=== PATIENT | female | born 1930 | race Caucasian/White ===

== ENCOUNTER 2017-05-10 08:29 | Inpatient (IN) | payer OTHER ==
[~2017-05-10] VITALS: Ht 162.6 cm; Wt 50.9 kg
[2017-05-10 08:43] LABS: POTASSIUM ISTAT 3.9 mmol/L (3.5-5.0)
--- NOTE | 2017-05-10 08:49 | PHYS DOC ---
Adult General HPI HPI Patient is a 86 year old F who presents with chest pain and shortness of breath. Patient states she woke up this morning after taking her medications developed some chest discomfort and increasing shortness of breath. EMS was called to take the patient to the hospital in the hospital she was being transferred to what is [place] however in route the patient had an EKG that read out as acute STEMI and was diverted to [facility]. Patient is a pacemaker. Patient still complains of some chest discomfort in the emergency room. Patient received aspirin per EMS. Patient denies any fevers. Patient denies any nausea/vomiting/diarrhea. Patient has no other complaints. Review of Systems Review of Systems GEN: Denies fevers, chills, sweats HEENT: Denies blurred vision, sore throat CV: chest pain RESP: Denies shortness of air, cough GI: Denies n/v/d NEURO: Denies confusion, dizziness MSK: Denies weakness, joint pain/swelling Current Medications Current Medications Current Medications Medications (Trade) Dose Ordered Sig/Murphy Start Time Stop Time Status Last Admin Dose Admin Aspirin (Children'S Aspirin) 324 mg 1X ONCE 05/10/17 09:00 05/10/17 09:01 DC 05/10/17 09:01 324 MG Furosemide (Lasix) 40 mg 1X ONCE 05/10/17 09:45 05/10/17 09:46 Iohexol (Omnipaque 300 Mg/ml) 60 ml 1X ONCE 05/10/17 09:45 05/10/17 09:46 Morphine Sulfate 2 mg PRN Q2HR PRN 05/10/17 09:45 05/11/17 09:44 Nitroglycerin (Nitrostat) 0.4 mg PRN Q5MIN PRN 05/10/17 09:45 05/11/17 09:44 Ondansetron HCl (Zofran) 4 mg PRN Q8HRS PRN 05/10/17 09:45 05/11/17 09:44 Allergies Allergies Allergies Coded Allergies Type Severity Reaction Last Updated Verified amoxicillin Allergy Intermediate RASH 05/10/17 Yes meperidine Adverse Reaction Unknown HALLUCINATIONS 05/10/17 Yes Physical Exam Physical Exam GEN.: No apparent distress. Alert and oriented. HEENT: Head is normocephalic, atraumatic NECK: Supple. LUNGS: CTAB. HEART: Irregular irregular, 3/6 MATTHEW. Peripheral pulses intact ABDOMEN: Soft, nontender. Positive bowel sounds. EXTREMITIES: Without any cyanosis. +2 pitting edema to the left lower extremity, no calf tenderness to the left lower extremity NEUROLOGIC: Normal speech, normal tone PSYCHIATRIC: Normal affect, normal mood. SKIN: No ulcerations Current Patient Data Vital Signs Vital Signs Date Time Temp Pulse Resp B/P (MAP) Pulse Ox O2 Delivery O2 Flow Rate FiO2 05/10/17 08:30 98.0 79 16 201/87 (125) 95 Room Air 98.0 Lab Values Laboratory Tests Test 05/10/17 08:30 05/10/17 08:36 05/10/17 08:38 White Blood Count 7.1 x10^3/uL (4.0-11.0) Red Blood Count 5.58 x10^6/uL (3.50-5.40) H Hemoglobin 14.0 g/dL (12.0-15.5) Hematocrit 42.6 % (36.0-47.0) Mean Corpuscular Volume 76 fL (79-100) L Mean Corpuscular Hemoglobin 25 pg (25-35) Mean Corpuscular Hemoglobin Concent 33 g/dL (31-37) Red Cell Distribution Width 21.1 % (11.5-14.5) H Platelet Count 800 x10^3/uL (140-400) H Neutrophils (%) (Auto) 74 % (31-73) H Lymphocytes (%) (Auto) 13 % (24-48) L Monocytes (%) (Auto) 10 % (0-9) H Eosinophils (%) (Auto) 2 % (0-3) Basophils (%) (Auto) 1 % (0-3) Neutrophils # (Auto) 5.3 x10^3uL (1.8-7.7) Lymphocytes # (Auto) 0.9 x10^3/uL (1.0-4.8) L Monocytes # (Auto) 0.7 x10^3/uL (0.0-1.1) Eosinophils # (Auto) 0.2 x10^3/uL (0.0-0.7) Basophils # (Auto) 0.1 x10^3/uL (0.0-0.2) Platelet Estimate Pending Sodium Level 140 mmol/L (136-145) Potassium Level 3.9 mmol/L (3.5-5.1) Chloride Level 99 mmol/L (98-107) Carbon Dioxide Level 31 mmol/L (21-32) Anion Gap 10 (6-14) 17 mmol/L (6-14) H Blood Urea Nitrogen 18 mg/dL (7-20) Creatinine 0.9 mg/dL (0.6-1.0) Estimated GFR (Cockcroft-Gault) 59.2 BUN/Creatinine Ratio 20 (6-20) Glucose Level 90 mg/dL (70-99) 86 mg/dL (70-99) Calcium Level 8.8 mg/dL (8.5-10.1) Total Bilirubin 0.9 mg/dL (0.2-1.0) Aspartate Amino Transferase (AST) 35 U/L (15-37) Alanine Aminotransferase (ALT) 21 U/L (14-59) Alkaline Phosphatase 153 U/L (46-116) H Total Protein 7.3 g/dL (6.4-8.2) Albumin 3.8 g/dL (3.4-5.0) Albumin/Globulin Ratio 1.1 (1.0-1.7) POC Troponin I 0.03 ng/ml (<0.08) POC Hemoglobin 15.3 g/dL (12-15) H POC Hematocrit 45 % (36-40) H POC Sodium 138 mmol/L (135-145) POC Potassium 3.9 mmol/L (3.5-5.0) POC Chloride 97 mmol/L (98-110) L POC Total CO2 29 mmol/L (23-32) POC Blood Urea Nitrogen 19 mg/dL (8-26) POC Creatinine 0.9 mg/dL (0.5-1.4) POC Ionized Calcium (Ángel) 1.15 mmol/L (1.13-1.32) Laboratory Tests 05/10/17 08:30 Laboratory Tests 05/10/17 08:30 05/10/17 08:38 EKG EKG 0831: EKG shows A. fib rate of 78 no STEMI no previous EKG to compare to however no overall change from EMSs EKG 0849: H of fibrillation rate of 97 no change from previous EKGs [] Radiology/Procedures Radiology/Procedures Chest x-ray shows cardiomegaly with pulmonary congestion Ultrasound left lower extremity no acute DVT CT A of the chest pending [] Course & Med Decision Making Course & Med Decision Making Pertinent Labs and Imaging studies reviewed. (See chart for details) ED course: Patient was seen and examined emergency room prior to arrival a STEMI pager was sent out and upon arrival patient to cardiac workup done in the emergency room 0830: Discussed CC/HP/PMH with Dr. Yepez and he in the emergency room in the next 10 minutes. 0846: Dr. Yepez at bedside evaluating the patient and would like to cancel the STEMI page, however like to admit the patient for cardiac workup to medicine with cardiology on consult 0946: Discussed CC/HP/PMH with Dr. LOVE and recommends admit [] MDM: After reviewing the chart, CC/HPI/PMH, physical exam, [lab results], [ radiological results], I do not the patient have an acute STEMI however given the patient's significant cardiac history with the patient for cardiac workup. [] Dragon Disclaimer Dragon Disclaimer This electronic medical record was generated, in whole or in part, using a voice recognition dictation system. Departure Departure Impression: Primary Impression: Chest pain Additional Impressions: Dyspnea Left leg swelling Disposition: ADMITTED INPATIENT Admitting Physician: Theodore Love Condition: STABLE Problem Qualifiers ZENY CAMPOVERDE DO May 10, 2017 08:48
[2017-05-10] MEDS ORDERED: ASPIRIN CHEWABLE 81 MG TABLET. PO ONE (09:00)
--- NOTE | 2017-05-10 09:08 | RAD ---
AP portable chest radiograph 05/10/2017 Clinical History: Chest pain. An AP portable erect digital radiograph of the chest was obtained. No previous studies are available for comparison. A pacemaker overlies the left anterior chest. Leads extends to overlie the right atrium and right ventricle of the heart. The cardiac silhouette is mildly enlarged. Atherosclerotic calcification of the thoracic aorta is seen. The thoracic aorta is tortuous. There appears to be a small left pleural effusion. Fullness of the right superior mediastinum is seen. Prominence of interstitial markings in both lungs is seen suggesting mild interstitial pulmonary edema. No pneumothorax is noted. There is diffuse osteopenia the visualized bony structures. Degenerative changes are seen involving the thoracic spine and both shoulders. Impression: Prominence of the interstitial markings in both lungs is seen consistent with interstitial pulmonary edema related to CHF.
[2017-05-10 09:09] LABS: BASO # 0.1 x10^3/uL (0.0-0.2); BASO % 1 % (0-3); EOS % 2 % (0-3); HEMATOCRIT 42.6 % (36.0-47.0); LYMPH # 0.9 x10^3/uL (1.0-4.8); LYMPH % 13 % (24-48); MEAN CORPUSCULAR HEMOGLOBIN 25 pg (25-35); MEAN CORPUSCULAR HGB CONC 33 g/dL (31-37); MEAN CORPUSCULAR VOLUME 76 fL (79-100); MONO % 10 % (0-9); NEUT % 74 % (31-73); PLATELET COUNT 800 x10^3/uL (140-400); RED BLOOD COUNT 5.58 x10^6/uL (3.50-5.40); RED CELL DISTRIBUTION WIDTH 21.1 % (11.5-14.5); WHITE BLOOD COUNT 7.1 x10^3/uL (4.0-11.0)
[2017-05-10 09:12] LABS: CALCIUM 8.8 mg/dL (8.5-10.1); CREATININE 0.9 mg/dL (0.6-1.0); GFR 59.2; POTASSIUM 3.9 mmol/L (3.5-5.1)
[2017-05-10 09:28] LABS: ALBUMIN 3.8 g/dL (3.4-5.0); ALBUMIN/GLOBULIN RATIO 1.1 (1.0-1.7); TOTAL BILIRUBIN 0.9 mg/dL (0.2-1.0); TOTAL PROTEIN 7.3 g/dL (6.4-8.2)
[2017-05-10] MEDS ORDERED: MORPHINE SULFATE 2 MG/ML DISP.SYRIN. IV PRN (09:45)
[2017-05-10] MEDS ORDERED: NITROGLYCERIN SUBLINGUAL 0.4 MG BOTTLE OF 25. SL PRN (09:45)
[2017-05-10] MEDS ORDERED: IOHEXOL 300 MG/ML 75 ML VIAL IV ONE (09:45)
[2017-05-10] MEDS ORDERED: ONDANSETRON PF 4 MG/2 ML VIAL. IV PRN (09:45)
[2017-05-10] MEDS ORDERED: FUROSEMIDE 40 MG TABLET. PO ONE (09:45)
--- NOTE | 2017-05-10 09:47 | RAD ---
Left lower extremity venous duplex study 05/10/2017 Clinical History: Left leg swelling. Technique: Using a combination of real time ultrasound imaging and color-flow and pulse Doppler imaging techniques along with graded compression and augmentation, duplex evaluation of the deep venous system of the left lower extremity was performed. Multiple images were obtained. Findings: There is no sonographic evidence of deep venous thrombosis involving the visualized deep venous structures of the left lower extremity. Impression: Negative study.
[2017-05-10 10:15] LABS: PLT ESTIMATE INCREASED (ADEQUATE)
[2017-05-10 10:16] LABS: ANISOCYTOSIS MOD
--- NOTE | 2017-05-10 10:29 | RAD ---
CTA of the chest with contrast (pulmonary embolism protocol) 05/10/2017 Clinical History: Chest pain and shortness of breath.. Technique: After the intravenous administration of 60 mL of Omnipaque 300, contiguous, 0.625 mm axial sections were obtained through the chest. 2 mm reconstructed axial and 3D MIP coronal and sagittal reconstructed images were obtained. One or more of the following individualized dose reduction techniques were utilized for this study: 1. Automated exposure control. 2. Adjustment of the mA and/or kV according to patient size. 3. Use of iterative reconstruction technique. Findings: Comparison is made to patient's portable chest radiograph dated earlier today. No filling defects are seen within the major branches of either pulmonary artery. There is no CT evidence of pulmonary embolism. A pacemaker is unchanged in position. Atherosclerotic calcification of the thoracic aorta and its branches is noted. The thoracic aorta is tortuous but tapers normally. There is mild to moderate cardiomegaly. Elevation of the left hemidiaphragm is noted. Small bilateral pleural effusions are seen, right greater than left. Dependent subsegmental atelectasis is seen involving both lower lobes, left greater than right. A 8 mm calcified granuloma is seen involving the right lower lobe. No pneumothorax is noted. Impression: There is no CT evidence of pulmonary embolism.
--- NOTE | 2017-05-10 10:35 | PDOC2 ---
CARDIAC CONSULT DATE OF CONSULT Date of Consult DATE: 05/10/17 TIME: 10:15 REASON FOR CONSULT Reason for Consult: Chest pain REFERRING PHYSICIAN Referring Physician: Fred SOURCE Source: Chart review, Patient HISTORY OF PRESENT ILLNESS HISTORY OF PRESENT ILLNESS This is a pleasant 86 yo female admitted for complains of SOA. Pt reports that she has been having SOA but not too much in the last 2 weeks. This became more pronounced in the last few days and also has been having some slight chest discomfort. She is also been having intermittent palpitations. Last Monday she did fall and had some contusion to her left parietal region of her head but no unconsciousness, confusion. Verbalized that she lost her footing. She has been having some issues with fall thus she is only on ASA for stroke prevention per her manager [facility] at [facility], Dr. Delgado. She has AFIB and she also has pacemaker, likely from [facility]. Positive for orthopnea. She was noted to be SOA at the assisted living and was recommended to go to ED. She was being brought to [facility] but because her EKG appears to have ST elevation she was then diverted to [facility]. After checking she is on paced rhythm with underlying AFIB. Verbalized compliance with her medications. Denies any CAD, CVA but significant for MR. Presently she feels a little better with her SOA. She also has tenderness and LLE swelling but no prior hx of PE or DVT. Denies any fever or chills or increased wheezing in regards to her asthma. PAST MEDICAL HISTORY Cardiovascular: AFIB, HTN Pulmonary: Asthma CENTRAL NERVOUS SYSTEM: Other (No pertinent history) Heme/Onc: No pertinent hx Hepatobiliary: No pertinent hx Psych: No pertinent hx Musculoskeletal: Osteoarthritis Rheumatologic: No pertinent hx Infectious disease: No pertinent hx ENT: No pertinent hx Renal/: Chronic renal insuff Endocrine: No pertinent hx Dermatology: Other (skin cancer with resection) PAST SURGICAL HISTORY Past Surgical History: Pacemaker, Hernia Repair (multiple) FAMILY HISTORY Family History noncontributory to age SOCIAL HISTORY Smoke: No ALCOHOL: none Drugs: None Lives: Alone (assisted living) CURRENT MEDICATIONS CURRENT MEDICATIONS Current Medications Medications (Trade) Dose Ordered Sig/Murphy Route PRN Reason Start Time Stop Time Status Last Admin Dose Admin Aspirin (Children'S Aspirin) 324 mg 1X ONCE PO 05/10/17 09:00 05/10/17 09:01 DC 05/10/17 09:01 Iohexol (Omnipaque 300 Mg/ml) 60 ml 1X ONCE IV 05/10/17 09:45 05/10/17 09:46 DC 05/10/17 10:09 ALLERGIES ALLERGIES: Coded Allergies: amoxicillin (Verified Allergy, Intermediate, RASH, 05/10/17) meperidine (Verified Adverse Reaction, Unknown, HALLUCINATIONS, 05/10/17) ROS Review of System 14 point ROS evaluated with pertinent positives noted per HPI PHYSICAL EXAM General: Alert, Oriented X3, Cooperative, No acute distress HEENT: Atraumatic, Mucous membr. moist/pink Lungs: Other (basilar crackles) Heart: Normal S1, Normal S2, Other (intermittent V pacing with underlying AFIB ; 4/6 systolic murmur loudest to LLS border) Abdomen: Soft, No tenderness Extremities: No cyanosis, Other (2+ LLE edema) Skin: No breakdown, No significant lesion Neuro: Normal speech, Sensation intact Psych/Mental Status: Mental status NL, Mood NL MUSCULOSKELETAL: Osteoarthritic changes both hands VITALS VITALS Vital Signs Date Time Temp Pulse Resp B/P (MAP) Pulse Ox O2 Delivery O2 Flow Rate FiO2 05/10/17 09:30 66 151/77 (101) 94 Room Air 05/10/17 08:30 98.0 16 98.0 LABS Lab: Laboratory Tests Test 05/10/17 08:30 05/10/17 08:36 05/10/17 08:38 White Blood Count 7.1 x10^3/uL (4.0-11.0) Red Blood Count 5.58 x10^6/uL (3.50-5.40) Hemoglobin 14.0 g/dL (12.0-15.5) Hematocrit 42.6 % (36.0-47.0) Mean Corpuscular Volume 76 fL (79-100) Mean Corpuscular Hemoglobin 25 pg (25-35) Mean Corpuscular Hemoglobin Concent 33 g/dL (31-37) Red Cell Distribution Width 21.1 % (11.5-14.5) Platelet Count 800 x10^3/uL (140-400) Neutrophils (%) (Auto) 74 % (31-73) Lymphocytes (%) (Auto) 13 % (24-48) Monocytes (%) (Auto) 10 % (0-9) Eosinophils (%) (Auto) 2 % (0-3) Basophils (%) (Auto) 1 % (0-3) Neutrophils # (Auto) 5.3 x10^3uL (1.8-7.7) Lymphocytes # (Auto) 0.9 x10^3/uL (1.0-4.8) Monocytes # (Auto) 0.7 x10^3/uL (0.0-1.1) Eosinophils # (Auto) 0.2 x10^3/uL (0.0-0.7) Basophils # (Auto) 0.1 x10^3/uL (0.0-0.2) Sodium Level 140 mmol/L (136-145) Potassium Level 3.9 mmol/L (3.5-5.1) Chloride Level 99 mmol/L (98-107) Carbon Dioxide Level 31 mmol/L (21-32) Anion Gap 10 (6-14) 17 mmol/L (6-14) Blood Urea Nitrogen 18 mg/dL (7-20) Creatinine 0.9 mg/dL (0.6-1.0) Estimated GFR (Cockcroft-Gault) 59.2 BUN/Creatinine Ratio 20 (6-20) Glucose Level 90 mg/dL (70-99) 86 mg/dL (70-99) Calcium Level 8.8 mg/dL (8.5-10.1) Total Bilirubin 0.9 mg/dL (0.2-1.0) Aspartate Amino Transf (AST/SGOT) 35 U/L (15-37) Alanine Aminotransferase (ALT/SGPT) 21 U/L (14-59) Alkaline Phosphatase 153 U/L (46-116) Total Protein 7.3 g/dL (6.4-8.2) Albumin 3.8 g/dL (3.4-5.0) Albumin/Globulin Ratio 1.1 (1.0-1.7) Bedside Troponin I 0.03 ng/ml (<0.08) Bedside Hemoglobin 15.3 g/dL (12-15) Bedside Hematocrit 45 % (36-40) Bedside Sodium 138 mmol/L (135-145) Bedside Potassium 3.9 mmol/L (3.5-5.0) Bedside Chloride 97 mmol/L (98-110) Bedside Total CO2 29 mmol/L (23-32) Bedside Blood Urea Nitrogen 19 mg/dL (8-26) Bedside Creatinine 0.9 mg/dL (0.5-1.4) Bedside Ionized Calcium (Ángel) 1.15 mmol/L (1.13-1.32) ASSESSMENT/PLAN ASSESSMENT/PLAN 1. Atypical CP: doubt ACS, likely MSK or GI. Presently denies 2. Acute on chronic CHF with possible diastolic dysfunction: improved. Multifactorial with likely RVR episodes 3. LLE swelling: Pending chest CTA. 4. 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 Intermittent V pacing with underlying AFIB 5. AFIB likely chronic: rate controlled but with possible bursts of RVR given her symptoms of palpitations 6. Accelerated HTN 7, Hx of multiple falls: recent fall Monday with left parietal contusion. 8. Valvular insufficiency: suspecting ASA and moderate to severe MR. Recommendations 1. Continue with ASA for stroke prevention. Noted to be not a candidate for OAC/ NOAC due to age and multiple falls 2. Recently seen by [facility] cardiology 02/2017, will obtain records including recent TTE 3. Interrogate device, pt reports medtronic. 4. Will obtain list of meds and will evaluate needs and adjust accordingly. 5. Lasix therapy. Obtain venous doppler to LLE. Start metoprolol. 6. Mg, BNP, TSH, lipids, trend troponin Problems: MATTHIAS GE APRN May 10, 2017 10:35
[2017-05-10 10:56] LABS: CHOLESTEROL/HDL RATIO 2.5; MAGNESIUM 2.2 mg/dL (1.8-2.4)
[2017-05-10 11:00] VITALS: BP 164/74
[2017-05-10] MEDS ORDERED: POTASSIUM CHLO10 MEQ PO (12:05)
[2017-05-10] MEDS ORDERED: LORA10TA3 PO (12:05)
[2017-05-10] MEDS ORDERED: CALC1TAB59 PO (12:05)
[2017-05-10] MEDS ORDERED: ACET325T9 PO (12:05)
[2017-05-10] MEDS ORDERED: FURO20TA3 PO (12:05)
[2017-05-10] MEDS ORDERED: DILT120C80 PO (12:05)
[2017-05-10] MEDS ORDERED: VENTOLIN HFA18 GM INH (12:05)
[2017-05-10] MEDS ORDERED: CHOL100013 PO (12:05)
[2017-05-10] MEDS ORDERED: SODI30SP NS (12:05)
[2017-05-10] MEDS ORDERED: TRAM1TAB4 PO (12:05)
[2017-05-10] MEDS ORDERED: MOME110A2 IH (12:05)
[2017-05-10] MEDS ORDERED: FUROSEMIDE 20 MG/2 ML VIAL. IVP ONE (12:45)
[2017-05-10] MEDS: CETIRIZINE HCL 10 MG TABLET. PO SCH (14:00)
[2017-05-10] MEDS ORDERED: FUROSEMIDE 20 MG TABLET PO SCH (14:00)
[2017-05-10] MEDS: CHOLECALCIFEROL (VITAMIN D3) 1,000 UNIT TABLET PO SCH (14:00)
[2017-05-10 14:30] VITALS: BP 137/63
[2017-05-10] MEDS: SODIUM CHLORIDE 0.65% NASAL SPRAY 45ML BOTTLE. NS SCH ×3 (14:44→20:10)
--- NOTE | 2017-05-10 15:20 | EKG ---
[facility] [address] [place] [address] Test Date: 2017-05-10 Test Time: 08:28:05 Pat Name: SULEIMAN OTERO Department: Room: Gender: F Non Cdl Driver: : 1930 Requested By: ZENY CAMPOVERDE Order Number: [id number] Reading MD: Measurements Intervals [place] Rate: 78 P: OK: QRS: 28 QRSD: 152 T: -103 QT: 402 QTc: 462 Interpretive Statements ATRIAL FIBRILLATION VENTRICULAR PREMATURE COMPLEX(ES) RIGHT BUNDLE BRANCH BLOCK RVH WITH REPOLARIZATION ABNORMALITY RI6.01 Unconfirmed report No previous ECG available for comparison
--- NOTE | 2017-05-10 15:20 | EKG ---
[facility] [address] [place] [address] Test Date: 2017-05-10 Test Time: 08:41:30 Pat Name: SULEIMAN OTERO Department: Room: Gender: F Civil Engineer'S Aide: : 1930 Requested By: ZENY CAMPOVERDE Order Number: [id number] Reading MD: Measurements Intervals [place] Rate: 97 P: -152 CT: 206 QRS: 28 QRSD: 148 T: -36 QT: 386 QTc: 495 Interpretive Statements SUPRAVENTRICULAR RHYTHM COMPLEX(ES) WITH ABERRANT INTRAVENTRICULAR CONDUCTION PROLONGED CT INTERVAL RIGHT BUNDLE BRANCH BLOCK NON SPECIFIC ST DEPRESSION RI6.01 Unconfirmed report No previous ECG available for comparison
[2017-05-10] MEDS: POTASSIUM CHLORIDE 10 MEQ TABLET.ER. PO SCH (15:50)
[2017-05-10] MEDS: ASPIRIN ENTERIC COATED 81 MG TABLET.DR. PO SCH (15:52)
[2017-05-10] MEDS: METOPROLOL TART IMMED RELEASE 25 MG TABLET. PO SCH ×2 (15:52→20:10)
--- NOTE | 2017-05-10 15:56 | PDOC1 ---
History and Physical Date of Admission Date of Admission 05/10/17 Identification/Chief Complaint Chief Complaint sob chest pain Problems: Source Source: Caregiver, Chart review, Patient History of Present Illness History of Present Illness 86yo F, WITH Likely cognitive impairment, was sent from assisted living facility for sob and chest pain today. pt is a poor historian ,will have to think for a while to answer any question. SHe said she usually on NC 2 L every night. last night not sure why she said, she was not on it , either fell off or forgot. She woke up today, with a NA coming for meds, found her SOB, also mild 3/10 substernal chest pain, no radiation, + nausea, no diaphoresis, no vomiting, , + mild cough. and she feels ok till today. Ambulance was called, EKG showed ? STEMI and it is not. she feels good now on the floor room. She fell on Monday, trippled on the carpet on left side, hit left head, not syncope, no neurologic deficit, was sent to [facility] hosp, as per daughter, head CT neg. but pt c/o more occipital pain now. She saw her card in [facility] recently , got echo done. Past Medical History Cardiovascular: AFIB, HTN Pulmonary: Asthma CENTRAL NERVOUS SYSTEM: Other (No pertinent history) Heme/Onc: No pertinent hx Hepatobiliary: No pertinent hx Psych: No pertinent hx Rheumatologic: No pertinent hx Infectious disease: No pertinent hx ENT: No pertinent hx Renal/: Chronic renal insuff Endocrine: No pertinent hx Dermatology: Other (skin cancer with resection) Past Surgical History Past Surgical History: Pacemaker, Hernia Repair (multiple) Family History Family History: Hypertension Social History Smoke: No ALCOHOL: none Drugs: None Current Problem List Problem List Problems Medical Problems: (1) Chest pain Status: Acute (2) Dyspnea Status: Acute (3) Left leg swelling Status: Acute Current Medications Current Medications Current Medications Medications (Trade) Dose Ordered Sig/Murphy Start Time Stop Time Status Last Admin Dose Admin Acetaminophen (Tylenol) 650 mg DAILY 05/11/17 09:00 Albuterol Sulfate (Ventolin Neb Soln) 2.5 mg RTQID 05/10/17 16:00 Aspirin (Children'S Aspirin) 324 mg 1X ONCE 05/10/17 09:00 05/10/17 09:01 DC 05/10/17 09:01 324 MG Aspirin (Ecotrin) 81 mg DAILYWBKFT 05/10/17 15:00 Budesonide (Pulmicort) 0.5 mg RTBID 05/10/17 20:00 Calcium/Vitamin D (Oscal D 250mg/ 125uts) 1 tab DAILY 05/11/17 09:00 Cetirizine HCl (ZyrTEC) 10 mg DAILY 05/10/17 14:00 Diltiazem HCl (Cardizem 24hr Cd) 240 mg DAILY 05/10/17 14:00 Furosemide (Lasix) 40 mg DAILY 05/11/17 09:00 Iohexol (Omnipaque 300 Mg/ml) 60 ml 1X ONCE 05/10/17 09:45 05/10/17 09:46 DC 05/10/17 10:09 60 ML Metoprolol Tartrate (Lopressor) 25 mg BID 05/10/17 11:00 Morphine Sulfate 2 mg PRN Q2HR PRN 05/10/17 09:45 05/11/17 09:44 Nitroglycerin (Nitrostat) 0.4 mg PRN Q5MIN PRN 05/10/17 09:45 05/11/17 09:44 Non-Formulary Medication 110 mcg DAILY 05/11/17 09:00 UNV Ondansetron HCl (Zofran) 4 mg PRN Q8HRS PRN 05/10/17 09:45 05/11/17 09:44 Potassium Chloride (Klor-Con) 10 meq DAILYWBKFT 05/10/17 14:00 Sodium Chloride (Saline Mist Nasal) 1 suyapa QID 05/10/17 14:00 Vitamin D (Vitamin D3) 1,000 unit DAILY 05/10/17 14:00 Allergies Allergies Allergies Coded Allergies Type Severity Reaction Last Updated Verified amoxicillin Allergy Intermediate RASH 05/10/17 Yes meperidine Adverse Reaction Unknown HALLUCINATIONS 05/10/17 Yes ROS Review of System CONSTITUTIONAL: No fever or chills EYES: No recent changes SKIN: No rash or itching CARDIOVASCULAR: No chest pain, syncope, palpitations, or edema RESPIRATORY: + SOB or cough GASTROINTESTINAL: No nausea, vomiting or abdominal pain NEUROLOGICAL: No headaches or weakness ENDOCRINE: No cold or heat intolerance GENITOURINARY: No urgency or frequency of urination MUSCULOSKELETAL: No back pain or joint pain LYMPHATICS: No enlarged lymph nodes PSYCHIATRIC: No anxiety or depression Physical Exam Physical Exam GEN.: No apparent distress. Alert and oriented. HEENT: Head is normocephalic, atraumatic NECK: Supple. LUNGS: Clear to auscultation. HEART: RRR, S1, S2 present. Peripheral pulses intact ABDOMEN: Soft, nontender. Positive bowel sounds. EXTREMITIES: Without any cyanosis. LEFT leg 1+ chronic pitting edema. NEUROLOGIC: Normal speech, normal tone PSYCHIATRIC: Normal affect, normal mood. SKIN: No ulcerations Vitals Vitals Vital Signs Date Time Temp Pulse Resp B/P (MAP) Pulse Ox O2 Delivery O2 Flow Rate FiO2 05/10/17 14:30 97.5 65 18 137/63 (87) 94 Room Air 97.5 Labs Labs Laboratory Tests Test 05/10/17 08:30 05/10/17 08:36 05/10/17 08:38 White Blood Count 7.1 x10^3/uL (4.0-11.0) Red Blood Count 5.58 x10^6/uL (3.50-5.40) Hemoglobin 14.0 g/dL (12.0-15.5) Hematocrit 42.6 % (36.0-47.0) Mean Corpuscular Volume 76 fL (79-100) Mean Corpuscular Hemoglobin 25 pg (25-35) Mean Corpuscular Hemoglobin Concent 33 g/dL (31-37) Red Cell Distribution Width 21.1 % (11.5-14.5) Platelet Count 800 x10^3/uL (140-400) Neutrophils (%) (Auto) 74 % (31-73) Lymphocytes (%) (Auto) 13 % (24-48) Monocytes (%) (Auto) 10 % (0-9) Eosinophils (%) (Auto) 2 % (0-3) Basophils (%) (Auto) 1 % (0-3) Neutrophils # (Auto) 5.3 x10^3uL (1.8-7.7) Lymphocytes # (Auto) 0.9 x10^3/uL (1.0-4.8) Monocytes # (Auto) 0.7 x10^3/uL (0.0-1.1) Eosinophils # (Auto) 0.2 x10^3/uL (0.0-0.7) Basophils # (Auto) 0.1 x10^3/uL (0.0-0.2) Platelet Estimate Increased (ADEQUATE) Large Platelets Few Anisocytosis Mod Sodium Level 140 mmol/L (136-145) Potassium Level 3.9 mmol/L (3.5-5.1) Chloride Level 99 mmol/L (98-107) Carbon Dioxide Level 31 mmol/L (21-32) Anion Gap 10 (6-14) 17 mmol/L (6-14) Blood Urea Nitrogen 18 mg/dL (7-20) Creatinine 0.9 mg/dL (0.6-1.0) Estimated GFR (Cockcroft-Gault) 59.2 BUN/Creatinine Ratio 20 (6-20) Glucose Level 90 mg/dL (70-99) 86 mg/dL (70-99) Calcium Level 8.8 mg/dL (8.5-10.1) Magnesium Level 2.2 mg/dL (1.8-2.4) Total Bilirubin 0.9 mg/dL (0.2-1.0) Aspartate Amino Transf (AST/SGOT) 35 U/L (15-37) Alanine Aminotransferase (ALT/SGPT) 21 U/L (14-59) Alkaline Phosphatase 153 U/L (46-116) IT-Umw-V-Type Natriuretic Peptide 1542 pg/mL (0-449) Total Protein 7.3 g/dL (6.4-8.2) Albumin 3.8 g/dL (3.4-5.0) Albumin/Globulin Ratio 1.1 (1.0-1.7) Triglycerides Level 35 mg/dL (0-150) Cholesterol Level 147 mg/dL (0-200) LDL Cholesterol, Calculated 82 mg/dL (0-100) VLDL Cholesterol, Calculated 7 mg/dL (0-40) Non-HDL Cholesterol Calculated 89 mg/dL (0-129) HDL Cholesterol 58 mg/dL (40-60) Cholesterol/HDL Ratio 2.5 Thyroid Stimulating Hormone (TSH) 2.606 uIU/mL (0.358-3.74) Bedside Troponin I 0.03 ng/ml (<0.08) Bedside Hemoglobin 15.3 g/dL (12-15) Bedside Hematocrit 45 % (36-40) Bedside Sodium 138 mmol/L (135-145) Bedside Potassium 3.9 mmol/L (3.5-5.0) Bedside Chloride 97 mmol/L (98-110) Bedside Total CO2 29 mmol/L (23-32) Bedside Blood Urea Nitrogen 19 mg/dL (8-26) Bedside Creatinine 0.9 mg/dL (0.5-1.4) Bedside Ionized Calcium (Ángel) 1.15 mmol/L (1.13-1.32) Laboratory Tests Test 05/10/17 08:30 05/10/17 08:36 05/10/17 08:38 White Blood Count 7.1 x10^3/uL (4.0-11.0) Red Blood Count 5.58 x10^6/uL (3.50-5.40) Hemoglobin 14.0 g/dL (12.0-15.5) Hematocrit 42.6 % (36.0-47.0) Mean Corpuscular Volume 76 fL (79-100) Mean Corpuscular Hemoglobin 25 pg (25-35) Mean Corpuscular Hemoglobin Concent 33 g/dL (31-37) Red Cell Distribution Width 21.1 % (11.5-14.5) Platelet Count 800 x10^3/uL (140-400) Neutrophils (%) (Auto) 74 % (31-73) Lymphocytes (%) (Auto) 13 % (24-48) Monocytes (%) (Auto) 10 % (0-9) Eosinophils (%) (Auto) 2 % (0-3) Basophils (%) (Auto) 1 % (0-3) Neutrophils # (Auto) 5.3 x10^3uL (1.8-7.7) Lymphocytes # (Auto) 0.9 x10^3/uL (1.0-4.8) Monocytes # (Auto) 0.7 x10^3/uL (0.0-1.1) Eosinophils # (Auto) 0.2 x10^3/uL (0.0-0.7) Basophils # (Auto) 0.1 x10^3/uL (0.0-0.2) Platelet Estimate Increased (ADEQUATE) Large Platelets Few Anisocytosis Mod Sodium Level 140 mmol/L (136-145) Potassium Level 3.9 mmol/L (3.5-5.1) Chloride Level 99 mmol/L (98-107) Carbon Dioxide Level 31 mmol/L (21-32) Anion Gap 10 (6-14) 17 mmol/L (6-14) Blood Urea Nitrogen 18 mg/dL (7-20) Creatinine 0.9 mg/dL (0.6-1.0) Estimated GFR (Cockcroft-Gault) 59.2 BUN/Creatinine Ratio 20 (6-20) Glucose Level 90 mg/dL (70-99) 86 mg/dL (70-99) Calcium Level 8.8 mg/dL (8.5-10.1) Magnesium Level 2.2 mg/dL (1.8-2.4) Total Bilirubin 0.9 mg/dL (0.2-1.0) Aspartate Amino Transf (AST/SGOT) 35 U/L (15-37) Alanine Aminotransferase (ALT/SGPT) 21 U/L (14-59) Alkaline Phosphatase 153 U/L (46-116) LO-Egk-S-Type Natriuretic Peptide 1542 pg/mL (0-449) Total Protein 7.3 g/dL (6.4-8.2) Albumin 3.8 g/dL (3.4-5.0) Albumin/Globulin Ratio 1.1 (1.0-1.7) Triglycerides Level 35 mg/dL (0-150) Cholesterol Level 147 mg/dL (0-200) LDL Cholesterol, Calculated 82 mg/dL (0-100) VLDL Cholesterol, Calculated 7 mg/dL (0-40) Non-HDL Cholesterol Calculated 89 mg/dL (0-129) HDL Cholesterol 58 mg/dL (40-60) Cholesterol/HDL Ratio 2.5 Thyroid Stimulating Hormone (TSH) 2.606 uIU/mL (0.358-3.74) Bedside Troponin I 0.03 ng/ml (<0.08) Bedside Hemoglobin 15.3 g/dL (12-15) Bedside Hematocrit 45 % (36-40) Bedside Sodium 138 mmol/L (135-145) Bedside Potassium 3.9 mmol/L (3.5-5.0) Bedside Chloride 97 mmol/L (98-110) Bedside Total CO2 29 mmol/L (23-32) Bedside Blood Urea Nitrogen 19 mg/dL (8-26) Bedside Creatinine 0.9 mg/dL (0.5-1.4) Bedside Ionized Calcium (Ángel) 1.15 mmol/L (1.13-1.32) VTE Prophylaxis Ordered VTE Prophylaxis Devices: Yes VTE Pharmacological Prophylaxi: Yes Assessment/Plan Assessment/Plan dyspnea, fell off NC at night, usually NC 2L AT NIGHT, with severe , MR, PHTN , diastolic CHF? Atypical Chest pain, with heart valve problems severe , MR, TR, PHTN on recent echo chronic LLE 1+ edema, neg DVT PAFIB, no NC PPM ACcellerated HTN cognitive impairment from assisted living facility headache, recent falls essential thrombocytosis, fu with own hemoc as outpt COPD plan: fu with [facility] meds head CT chest CTA neg cycle CE NC as needed on lasix labs tmr dvt ppx PPM integration with BRYAN Ward MD May 10, 2017 15:56
[2017-05-10] MEDS: ALBUTEROL SULFATE 2.5 MG/3 ML NEBU. NEB SCH ×2 (15:59→19:38)
[2017-05-10] MEDS ORDERED: ENOXAPARIN 30 MG/0.3 ML SYRINGE. SQ SCH (16:00)
[2017-05-10] MEDS ORDERED: NON FORMULARY ITEM (Albuterol Sulfate (Ventolin Hfa Inhaler) 2 PUFF) INH SCH (17:00)
[2017-05-10] MEDS ORDERED: TRAZ50TA15 PO (18:18)
[2017-05-10] MEDS ORDERED: PANT40TA3 PO (18:18)
[2017-05-10] MEDS ORDERED: LUBI8CAP4 PO (18:18)
[2017-05-10] MEDS: BUDESONIDE 0.5 MG/2 ML NEBU. NEB SCH (19:38)
[2017-05-10 19:47] VITALS: BP 137/70
[2017-05-10 22:02] VITALS: BP 138/74
--- NOTE | 2017-05-11 00:45 | ACF ---
Admission Forms Criteria CARDIOLOGY GRG Clinical Indications for Admission to Inpatient Care ( [place]/check or initial the applicable condition/criteria) Hospital admission is needed for appropriate care of the patient because of ANY ONE of the following: [ ] I. Hemodynamic instability as indicated by ALL of the following (1)(2)(3) (4)(5)(6)(7)(8)(9)(10) [ ]a) Vital sign abnormality not readily corrected by appropriate treatment with 12-24 hours for ANY ONE: [ ]i) Hypotension that persists despite appropriate treatment (eg, volume repletion) [ ]ii) Tachycardiathat persists despite appropriate tx ( e.g., analgesia, fluids, sedation as indicated [ ]iii) Orthostatic vital sign changes that persists despite appropriate treatment (eg, volume repletion) [ ]b) Vital sign abnormailty that is severe indicated by ANY ONE of the following: [ ]i) Inadequate perfusion indicated by ANY ONE of the following: [ ] 1) Lactic acidosis (> 2 mmol/L) [ ] 2) New abnormal capillary refill (> 3 seconds) [ ] 3) Reduced urine output [ ] 4) New altered mental status [ ] 5) Myocardial Ischemia [ ] 6) Other metabolic acidosis (arterial pH <7.35 ) not otherwise explained. [ ]ii) Mean arterial pressure[A] less than 60 mm Hg [ ]iii) Mean arterial pressure[A] less than 70 mm Hg after 30 minutes of appropriate treatment (eg, fluid resuscitation) [ ]iv) Sustained heart rate greater than 120 beats per minute in adult or child 6 years or older[B] [ ]v) IV inotropic or vasopressor medication required to maintain adequate blood pressure or perfusion [ ] II. Severe heart failure as indicated by ANY ONE of the following(17)(18) [ ]a) Respiratory distress [ ]b) Hypotension [ ]c) Debilitating anasarca refractory to therapy (eg, tissue breakdown with infection)[C](19) [ ]d) Cardiac arrhythmias of immediate concern [ ]e) Myocardial ischemia [ ] III. Cardiac arrhythmias or findings of immediate concern indicated by ANY ONE of the following (21)(22): [ ] a) Heart rhythms that are inherently dangerous or unstable indicated by ANY ONE of the following (23)(24)(25): [ ] i) Resuscitated ventricular fibrillation or cardiac arrest [ ] ii) Ventricular escape rhythm [ ] iii) Sustained ventricular tachycardia (30 seconds or more of ventricular rhythm at greater than 100 beats per minute) [ ] iv) Nonsustained ventricular tachycardia and ANY ONE of the following: [ ] 1) Suspected cardiac ischemia as cause or consequence of ventricular tachycardia [ ] 2) Acute myocarditis [ ] b) Unstable cardiac conduction defects indicated by ANY ONE of the following(25)(26)(27) [ ] i) Type II second-degree atrioventricular block [ ]ii) Third-degree atrioventricular block [ ]iii) New-onset left bundle branch block with suspected myocardial ischemia [ ]c) Any heart rhythm and ANY ONE of the following (23)(24)(28)(29) (30) [ ] i) Continuous long-term ECG monitoring needed (e.g., initiation of drug requiring monitoring for more than 24 hours) [ ] ii) Patient has automatic implanted cardioverter defibrillator that is repeatedly firing, malfunctioning, or in need of immediate adjustment of settings beyond the scope of ambulatory or observation care [ ]d) Heart rhythms of concern due to ANY ONE of the following: [ ] i) Hypotension [ ] ii) Respiratory distress [ ] iii) Association with other significant symptoms (e.g., bradycardia with syncope or ongoing dizziness, supraventricular tachycardia with chest pain (28)(29)(31) [ ] IV. Monitoring for cardiac contusion beyond the scope of observation care needed [A](32)(33)(34) [ ] V. Surgical or device complication (e.g., valve replacement complication , ICD disfunction or pacemaker dysfunction) (49)(50)(51)(52)(53)(54) [ ] . Inpatient palliative care needed. [F](51)(52) Also use Inpatient Palliative Care Criteria [ ] VII. Nonbacterial thrombotic (marantic) endocarditis(43)(44)(55)(56)(57) [X] VIII. Cardiology condition, symptom, or finding for which emergency and observation care has failed or are not considered appropriate. [ ] IX. Acute valvular disease requiring inpatient as indicated by ANY ONE of the following (40)(41) [ ]a) Acute valvular regurgitation (42) [ ]b) Noninfectious valvulitis (43)(44) [ ]c) Obstructive valve thrombosis (45)(46) [ ]d) Paravalvular leak(47)(48) [ ]e) Other significant valvular disorder remaining after emergency or observation level of care (as appropriate) [ ]X. Pericardial disease requiring inpatient treatment as indicated by ANY ONE of the following (35)(36)(37)(38) [ ]a) Suspected tamponade [ ]b) Hemopericardium [ ]c) Other significant pericardial disorder remaining after emergency or observation level of care (as appropriate)(39) [ ] XI. Cardiac ischemia beyond scope of emergency and observation care. [ ] XII. Cyanotic heart disease requiring inpatient care as indicated by 1 or more of the following(58)(59)(60): [ ]a) Acute onset of hypoxemia [ ]b) Exacerbation [ ] XIII. Hypertension requiring inpatient treatment as indicated by ANYONE of the following(11)(12)(13)(14): [ ]a) Severe hypertension (SBP greater than 180 mm Hg or DBP greater than 110 mm Hg, or greater than the 95th percentile for age, gender, and height in pediatric patients) that cannot be controlled (eg, to SBP less than 160 mm Hg and DBP less than 100 mm Hg) by emergency department or observation care treatment(15) [ ]b) Acute end organ damage secondary to hypertension (SBP greater than 140 mm Hg or DBP greater than 90 mm Hg) as indicated by ANYONE of the following: [ ] i) Hypertensive encephalopathy (eg, Altered mental status)(16) [ ] ii) Cerebral infarction [ ] iii) Intracranial hemorrhage [ ] iv) Myocardial ischemia or infarction [ ] v) Heart failure (eg, pulmonary edema) [ ] vi) Aortic dissection [ ] vii) Increased creatinine (new) with reduction of more than 50% in estimated glomerular filtration rate from baseline [ ] viii) Papilledema [ ] ix) Retinal hemorrhage [ ] x) Microangiopathic hemolytic anemia [ ] xi) Seizure [ ] xii) Other significant finding secondary to hypertension [ ] XIV. Complications of transplanted heart indicated by ANY ONE of the following(61): [ ]a) Acute graft rejection requiring inpatient management (eg, intravenous imunosuppression)(62)(63) [ ]b) Acute graft heart failure indicated by ANY ONE of the following(64): [ ] i) Hemodynamic instability [ ] ii) Cardiac arrhythmias of immediate concern [ ] iii) Pulmonary edema that is very severe (eg, mechanical ventilation needed, imminent or likely, need for 100% oxygen to keep oxygen saturation above 90%) [ ] iv) Pulmonary edema that is persistent as indicated by ALL of the following: [ ] 1) New need for oxygen therapy to keep oxygen saturation above 90 % (or increased FiO2 need from baseline) [ ] 2) Has not improved sufficiently with emergency department or observation care IV diuretics or other heart failure treatments[E]. [ ] iv) Altered mental status that is severe or persistent [ ] iv) Increased creatinine (new on laboratory test) with reduction of more than 50% in estimated glomerular filtration rate from baseline [ ] iv) Progressively (ongoing) rising creatinine (known from past laboratory test) with reduction of more than 25% in estimated glomerular filtration rate from baseline [ ] iv) Acute renal failure [ ] iv) Acute peripheral ischemia (eg, examination shows pulseless, cool, mottled, or cyanotic extremity) [ ] iv) Pulmonary artery catheter monitoring needed [ ] iv) Other sign or symptom of heart failure requiring inpatient treatment (ie, too severe or not responsive to outpatient and observation care treatment) [ ]c) Infection requiring inpatient management (eg, Hemodynamic instability, need for intravenous antimicrobial treatment)(66)(67)(68)(69)(70) [ ]d) Cardiac allograft vasculopathy requiring inpatient management (eg evidence of cardiacischemia)(71) [ ]e) Other complication of transplanted heart (eg, stroke, severe pulmonary hypertension, severe valvular dysfunction) requiring inpatient management(72) The original [employer] [employer] content created by [employer] has been revised. The portions of the content which have been revised are identified through the use of italic text, and [facility] has neither reviewed nor approved the modified material. All other unmodified content is copyright [facility]. Please see references footnoted in the original [employer] edition 2014 Admission Criteria Met?: Yes MICHELLE SALAS May 11, 2017 00:45
[2017-05-11 02:33] VITALS: BP 142/71
[2017-05-11 06:52] LABS: BASO % 1 % (0-3); EOS % 2 % (0-3); HEMOGLOBIN 12.3 g/dL (12.0-15.5); LYMPH # 0.7 x10^3/uL (1.0-4.8); LYMPH % 12 % (24-48); MEAN CORPUSCULAR HEMOGLOBIN 25 pg (25-35); MEAN CORPUSCULAR HGB CONC 32 g/dL (31-37); MEAN CORPUSCULAR VOLUME 76 fL (79-100); MONO % 10 % (0-9); NEUT % 75 % (31-73); PLATELET COUNT 694 x10^3/uL (140-400); RED BLOOD COUNT 5.01 x10^6/uL (3.50-5.40); RED CELL DISTRIBUTION WIDTH 20.9 % (11.5-14.5)
[2017-05-11 07:00] VITALS: BP 142/71
[2017-05-11 07:09] LABS: CREATININE 0.9 mg/dL (0.6-1.0); GFR 59.2; POTASSIUM 3.6 mmol/L (3.5-5.1)
[2017-05-11] MEDS: BUDESONIDE 0.5 MG/2 ML NEBU. NEB SCH (07:28)
[2017-05-11] MEDS: ALBUTEROL SULFATE 2.5 MG/3 ML NEBU. NEB SCH ×3 (07:28→15:04)
--- NOTE | 2017-05-11 08:42 | RAD ---
Exam performed: CT scan of the head without contrast. Date of Service: 05/11/17. Comparison: None available. Clinical History: Recent falls with headache. Technique: Helical acquisitions are obtained from the foramen magnum to the vertex without intravenous administration of contrast. Findings: There is prominence of cortical sulci and ventricular system compatible with age related atrophy. There are areas of low-attenuation in both periventricular deep white matter suggesting small vessel ischemic changes. Normal singh-white differentiation is maintained. There is no extra axial fluid collection, intraparenchymal hemorrhage or mass lesion. The visualized portions of the orbits, paranasal sinuses and the mastoid air cells appear clear. The calvarium is intact. Impression: 1. Age-appropriate atrophy without any acute intracranial process. PQRS Compliance Statement: One or more of the following individualized dose reduction techniques were utilized for this examination: 1. Automated exposure control 2. Adjustment of the mA and/or kV according to patient size 3. Use of iterative reconstruction technique
[2017-05-11] MEDS ORDERED: ACETAMINOPHEN 325 MG TABLET. PO SCH (09:00)
[2017-05-11] MEDS ORDERED: CALCIUM CARB/VIT D3 250/125 TABLET. PO SCH (09:00)
[2017-05-11] MEDS ORDERED: FUROSEMIDE 20 MG TABLET PO SCH (09:00)
[2017-05-11] MEDS: SODIUM CHLORIDE 0.65% NASAL SPRAY 45ML BOTTLE. NS SCH ×2 (09:00→13:00)
[2017-05-11] MEDS ORDERED: NON FORMULARY ITEM (Mometasone Furoate (Asmanex) 110 MCG) IH SCH (09:00)
[2017-05-11 09:01] VITALS: BP 186/66
[2017-05-11] MEDS: CHOLECALCIFEROL (VITAMIN D3) 1,000 UNIT TABLET PO SCH (09:01)
[2017-05-11] MEDS: ASPIRIN ENTERIC COATED 81 MG TABLET.DR. PO SCH (09:01)
[2017-05-11] MEDS: CETIRIZINE HCL 10 MG TABLET. PO SCH (09:02)
[2017-05-11] MEDS: METOPROLOL TART IMMED RELEASE 25 MG TABLET. PO SCH (09:02)
[2017-05-11] MEDS: POTASSIUM CHLORIDE 10 MEQ TABLET.ER. PO SCH (09:02)
[2017-05-11 11:19] VITALS: BP 147/75
[2017-05-11] MEDS ORDERED: BISACODYL 5 MG TABLET.DR. PO ONE ×2 (12:30→13:15)
--- NOTE | 2017-05-11 12:38 | PDOC ---
CARDIO Progress Notes Date and Time Date of Service 05/11/2017 Time of Evaluation 1230 Subjective Subjective: No Chest Pain, No shortness of breath, No Palpitations, No Dizziness Vitals Vitals Vital Signs Date Time Temp Pulse Resp B/P (MAP) Pulse Ox O2 Delivery O2 Flow Rate FiO2 05/11/17 11:19 97.9 80 18 147/75 (99) 98 Room Air 97.9 Weight Weight [ ] Input and Output Intake and Output Intake and Output 05/12/17 07:00 Intake Total 240 ml Output Total 200 ml Balance 40 ml Intake Oral 240 ml Output Urine Total 200 ml Laboratory Labs Laboratory Tests Test 05/10/17 15:32 05/10/17 21:15 05/11/17 06:25 Troponin I Quantitative 0.025 ng/mL (0.000-0.055) 0.035 ng/mL (0.000-0.055) White Blood Count 6.0 x10^3/uL (4.0-11.0) Red Blood Count 5.01 x10^6/uL (3.50-5.40) Hemoglobin 12.3 g/dL (12.0-15.5) Hematocrit 38.0 % (36.0-47.0) Mean Corpuscular Volume 76 fL (79-100) Mean Corpuscular Hemoglobin 25 pg (25-35) Mean Corpuscular Hemoglobin Concent 32 g/dL (31-37) Red Cell Distribution Width 20.9 % (11.5-14.5) Platelet Count 694 x10^3/uL (140-400) Neutrophils (%) (Auto) 75 % (31-73) Lymphocytes (%) (Auto) 12 % (24-48) Monocytes (%) (Auto) 10 % (0-9) Eosinophils (%) (Auto) 2 % (0-3) Basophils (%) (Auto) 1 % (0-3) Neutrophils # (Auto) 4.5 x10^3uL (1.8-7.7) Lymphocytes # (Auto) 0.7 x10^3/uL (1.0-4.8) Monocytes # (Auto) 0.6 x10^3/uL (0.0-1.1) Eosinophils # (Auto) 0.1 x10^3/uL (0.0-0.7) Basophils # (Auto) 0.0 x10^3/uL (0.0-0.2) Sodium Level 140 mmol/L (136-145) Potassium Level 3.6 mmol/L (3.5-5.1) Chloride Level 101 mmol/L (98-107) Carbon Dioxide Level 33 mmol/L (21-32) Anion Gap 6 (6-14) Blood Urea Nitrogen 21 mg/dL (7-20) Creatinine 0.9 mg/dL (0.6-1.0) Estimated GFR (Cockcroft-Gault) 59.2 Glucose Level 98 mg/dL (70-99) Calcium Level 9.0 mg/dL (8.5-10.1) Physical Exam HEENT: Neck Supple W Full Motion Chest: Symmetric LUNGS: Clear to Auscultation Heart: S1S2, murmurs (4/6 systolic murmur to LLS border), irregularly irregular (AFIB) Abdomen: Soft N/T Extremities: No Calf Tenderness Neurology: alert, oriented, follow commands Assessment Assessment 1. Atypical CP: Troponin series normal, likely MSK/GI or from palpitations 2. Acute on chronic CHF with possible diastolic dysfunction: compensated. likely induced by RVR episodes. EF 55-60% 3. LLE swelling: likely from PVD. Negative for DVT and negative for PE 4. 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 Interrogation revealed normal functioning device, AFIB burden for 7 mo 92.8%. battery life 3-6 yrs. 5. Chronic AFIB; likely with RVR episodes prior to hospitalization 6. Accelerated HTN; controlled 7, Hx of multiple falls: recent fall Monday with left parietal contusion. 8. Valvular insufficiency: moderate to severe , moderate to severe TR, mild MR 9. Severe pulmonary HTN: PAP 58 mmHg Recommendations 1. Continue with ASA for stroke prevention. Noted to be not a candidate for OAC/ NOAC due to age and multiple falls and past hx of ICH 2. Follow up with [facility] outpt cardiology in 3-4 weeks 3. Continue with current regimen, will maintain addition of low dose metoprolol if no orthostasis 4. Encouraged to maintain po hydration MATTHIAS GE APRN May 11, 2017 12:38
[2017-05-11] MEDS ORDERED: ASPI-612 PO (12:53)
[2017-05-11] MEDS ORDERED: METO25TA4 PO (12:53)
--- NOTE | 2017-05-11 23:30 | DS ---
DATE OF DISCHARGE: 05/11/2017 CHIEF COMPLAINT: Shortness of breath and chest pain. HOSPITAL COURSE: The patient is an 86-year-old woman who was sent from her assisted living facility with complaints of chest pain and shortness of breath. She was found with accelerated hypertension and admitted for cardiac workup. She ruled out for ACS by serial enzymes and EKGs. CHF was deemed to be compensated with chronic low level lower extremity edema and no acute changes. Her pacemaker was interrogated and found to be normal. Her accelerated hypertension was easily brought under control and she was actually discharged on unchanged cardiac regimen. DISCHARGE EXAMINATION: VITAL SIGNS: Show blood pressure of 147/75, heart rate of 80, respiratory rate at 18. GENERAL: This is an 86-year-old woman, alert and oriented, in no acute distress. LUNGS: Clear. HEART: Irregular rate and rhythm with a 4/6 systolic murmur. ABDOMEN: Soft, nontender. EXTREMITIES: Show 1+ edema. DISCHARGE DISPOSITION: Back to assisted living. DISCHARGE CONDITION: Improved. DISCHARGE DIAGNOSIS: Atypical chest pain. DISCHARGE MEDICATIONS: Please refer to MAR. DISCHARGE INSTRUCTIONS: The patient will follow up with PCP in 1 week. ROHAN AHUJA MD DR: UR/nts JOB#: [id number] / [id number] DEVON Luevano MD MTDD
== END 2017-05-11 15:15 | disposition home health service (06) | DRG 291 ==
LOC: ER 08:29 → 2 SOUTH 09:07
PROVIDERS: ADMIT Internal Medicine; ATTEND Internal Medicine
DX: I13.0 Hypertensive heart and chronic kidney disease with heart failure and stage 1 through stage 4 chronic kidney disease, or unspecified chronic kidney disease (principal); I50.33 Acute on chronic diastolic (congestive) heart failure; I27.2 Other secondary pulmonary hypertension; I48.2 Chronic atrial fibrillation; I08.2 Rheumatic disorders of both aortic and tricuspid valves; D47.3 Essential (hemorrhagic) thrombocythemia; N18.9 Chronic kidney disease, unspecified; I73.9 Peripheral vascular disease, unspecified; R07.89 Other chest pain; J44.9 Chronic obstructive pulmonary disease, unspecified; M19.90 Unspecified osteoarthritis, unspecified site; Z91.81 History of falling; Z95.0 Presence of cardiac pacemaker; Z88.8 Allergy status to other drugs, medicaments and biological substances; Z88.1 Allergy status to other antibiotic agents; Z85.828 Personal history of other malignant neoplasm of skin; Z82.49 Family history of ischemic heart disease and other diseases of the circulatory system
CPT/HCPCS: 36415; 70450; 71010; 71275; 80047; 80048; 80053; 80061; 83735; 83880; 84443; 84484; 85025; 87641; 93005; 93971; 94250; 94640; 94760; J1650; J7613; J7626; Q9967; 99285-25